=== PATIENT | female | born 1985 | race Caucasian/White ===

== ENCOUNTER 2016-09-13 05:21 | Inpatient (IN) | payer BC ==
[~2016-09-13] VITALS: Ht 157.5 cm; Wt 77.3 kg
[2016-09-13 05:45] VITALS: BP 117/82
--- NOTE | 2016-09-13 05:45 | NUR ---
REC'D PT VIA STRETCHER FROM ER PER ER STAFF. PT TRANSFERS SELF TO BED. PT CURRENTLY DENIES PAIN AT PRESENT. PT HAS PIV TO LEFT AC AREA W/NS INFUSING AT SLOW RATE VIA GRAVITY. NS D/C'D. PITOCIN 20UNITS/NS INITIATED AT 125ML/HR VIA PUMP. BREATHSOUNDS CL/=, BOWEL SOUNDS PRESENT X 4. FUNDUS FIRM,U/1, MIDLINE. SCANT LOCHIA NOTED. NO BLOOD CLOTS EXPRESSED W/MASSAGE. NO APPARENT LACERATION NOTED. PEDAL PULSES PRESENT BILATERALLY. NO EDEMA NOTED. PT'S MOTHER DELIVERED AT PT'S HOME. PT'S MOTHER DENIES ANY DIFFICULTY WITH DELIVERY. SHE STATES "BY THE TIME I LAYED HER BACK, THE HEAD WAS AND THE BODY FOLLOWED EASILY." PLACENTA WAS DELIVERED PER ER MD PRIOR TO PT ARRIVING TO L&D. APPROX DELIVERY TIME OF INFANT REPORTED WAS 0450. PLACENTA DELIVERY TIME WAS 0524. PT REPORTS SHE IS A G3 NOW P3. PT REPORTS 2 PRIOR PREGNANCIES WERE W/OUT COMPLICATIONS AND WERE BOTH VAGINAL DELIVERIES AT TERM GESTATION. PT REPORTS SHE WAS UNAWARE THAT SHE WAS EVEN , ALTHOUGH PT'S MOTHER REPORTS TO Anuj BOATENG RN THAT SHE (PT'S MOTHER) SUSPECTED THAT THE PT WAS PREGNATN AND EVEN CONFRONTED THE PATIENT SUCH.
[2016-09-13 06:03] VITALS: BP 108/67; Ht 157.5 cm; Wt 77.3 kg
[2016-09-13 07:45] VITALS: BP 121/74
--- NOTE | 2016-09-13 07:45 | NUR ---
Upon entering room pt is awake and tilted to her right side. IV to her left AC infusing per orders via pump. fundus firm at 1/u, per pt she has not been up to bathroom since arrival to hospital. VS as charted on graph. Explained to her need to get up to void now and every couple of hours. Although she is hesitant at first she is able to amb without assistance and voids 400ml. Cailin care per herself with warm wet wash cloths. Gown, cailin pad and panties are provided to her. No clots noted with void and she denies pain or burning, state she does feel less cramping now, but rates pain at 6/10. Pain medication and options gone over and she request "just motrin" at this time.
--- NOTE | 2016-09-13 08:00 | NUR ---
IV saline locked at this time, lab notified for blood draw.
--- NOTE | 2016-09-13 08:07 | NUR ---
Kelly Guillen 09/13/16 LE@ 7:55 S: Patient states she is sore, still in shock over delivery at home. O: Patient lying in bed, light dim. Congratulated on delivery, your story is pretty amazing. Baby is beautiful, she just had her bath and is under the warmer, Itzel the nursery nurse, wanted me to let you know that status of baby and she will visit with you shortly. Feeding , would you like help with ? States she breastfed her other 2 children and plans on new baby. When infant is available to come into the room for feeding, please let us know how we can help with . does take time and patience. Allowing the infant to latch for every feeding will help with establishing her milk supply. It is possible she may or may not feel some discomfort at first but it shouldn't hurt, isn't associated with pain. That usually means infant latch can be changed and that's an easy fix. Asked if any questions or concerns at this time, patient declined. Will follow up. A: Patient appears tired, in shock from delivery. P: Promote exclusively during hospital visit. Abdulaziz Valadez, CLC
--- NOTE | 2016-09-13 08:13 | NUR ---
Motrin 600mg given per pt request for cramping. See emar. She is sitting up eating breakfast, no other needs at this time.
[2016-09-13 09:29] LABS: BASOPHILS 0 % (0.0-2.0); EOSINOPHILS 0.1 % (0-7); HEMATOCRIT 33.3 % (36.0-48.0); HEMOGLOBIN 10.8 g/dL (12-16); IMMATURE GRANULOCYTES 0.3 % (0-5); MCHC 32.4 g/dL (31.0-37.0); MCV 89.5 fL (80.0-100.0); MEAN PLATELET VOLUME 10.7 fL (7.4-10.4); MONOCYTES 4.8 % (2-11); NEUTROPHILS 87.8 % (40-80); PLATELET COUNT 202 10x3/uL (130-400); RBC 3.72 10x6/uL (4.00-5.40); RDW 13.3 % (11.5-14.5); WBC 11.9 10x3/uL (4.8-10.8)
[2016-09-13 09:37] LABS: UDS - AMPHET NEGATIVE QUAL (NEGATIVE); UDS - BARB NEGATIVE QUAL (NEGATIVE); UDS - BENZO NEGATIVE QUAL (NEGATIVE); UDS - COCAINE NEGATIVE QUAL (NEGATIVE); UDS - METH NEGATIVE QUAL (NEGATIVE); UDS - OPIATE POSITIVE QUAL (NEGATIVE); UDS - PCP NEGATIVE QUAL (NEGATIVE); UDS - THC NEGATIVE QUAL (NEGATIVE)
--- NOTE | 2016-09-13 10:22 | NUR ---
Pt sitting up in bed talking on the phone, family/friends at bedside holding . Denies pain or discomfort at this time. Shower supplies placed in bathroom per pt request. Side rails up x 2 with calllight in reach.
--- NOTE | 2016-09-13 12:02 | NUR ---
Pt denies needs at this time, rates pain at 2/10. Family at bedside, in crib at bedside.
[2016-09-13 13:00] VITALS: BP 112/60
--- NOTE | 2016-09-13 14:25 | NUR ---
Called to room, pt asking to take a shower now. Family in room so infant left in crib at bedside. Prior to shower she complains of tenderness at IV site, IV removed with cath intact. Bed linens changed while pt is in the shower. Denies any dizziness or nausea while in the shower, family remains in room and states understanding to call for nurse if needed.
--- NOTE | 2016-09-13 15:00 | NUR ---
Case management request to visit with patient. She is out of shower and is agreeable to visit. Rates her pain after shower at 4/10 but denies need for pain medication at this time. Will call if she needs anything for pain.
--- NOTE | 2016-09-13 15:02 | NUR ---
ORDER TO MEET WITH PATIENT NO CARE. MOM DID NOT KNOW SHE WAS . 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 SPOKE WITH LEON SUAZO. SHE STATES THAT SHE TRULY DID NOT KNOW SHE WAS . SHE STATES THAT SHE DID NOT GET A LARGE ABDOMEN AND THAT SHE HAS PERIODS EACH MONTH. 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 SHE STATES THAT SHE LIVES WITH HER OTHER CHILDREN BUT WILL NOW BE STAYING WITH HER MOTHER, TIEN GONZALEZ [phone]. SHE HAS TWO OTHER CHILDREN, GIRL AGE 8, MASTER, AND BOY JULIA AGE 4. MASTER GOES TO SCHOOL AT [employer] AND JULIA GOES TO [employer]. SHE PLANS TO BREAST FEED EXCLUSIVELY. SHE STATES SHE HAS A CARSEAT AND CRIB. SHE STATES HER FAMILY HAS GOTTEN TOGETHER AND ARE PROVIDING ALL SHE NEEDS FOR THIS BABY. LEON STATES SHE HAS A CAR AND DRIVES AND WILL BE ABLE TO GET TO FOLLOW UP APPOINTMENTS FOR SHE AND BABY. SHE WILL BE LIVING AT [address] [place] [address] WITH HER MOTHER. LEON'S PHONE NUMBER IS [phone]. LEON DENIES ANY DISCHARGE NEEDS AT THIS TIME.
--- NOTE | 2016-09-13 17:30 | NUR ---
Visiting with friends with in room. denies any needs at this time. Rates pain at 2-3/10 but denies need for any medication. Side rails up x 2 with phone and call light in reach.
--- NOTE | 2016-09-13 18:48 | NUR ---
report given to 7p-7a.
[2016-09-13 19:04] VITALS: BP 114/72
--- NOTE | 2016-09-13 19:04 | NUR ---
RCVD PT FROM AM SHIFT. PT SITTING UP IN BED WITH UP IN ARMS CHEERFUL AND BONDING WITH INFANT. PT RATES PAIN CURRENTLY A 3/10 IN ABD AND DESCRIBES THIS CRAMPING. BREATH SOUNDS CLEAR =X2. BOWEL SOUNDS ACTIVE X4. PPP. S1, S2. FUNDUS FIRM, ML, U/1. PT REPORTS PASSING GAS AND VOIDING RECENTLY. PT VOICED NEED TO AMB MORE. ENCOURAGED PT TO AMB AROUND ROOM AND AROUND UNIT. PT VERBALIZED UNDERSTANDING. XOCHITL RAMIREZ SCANT ON PERIPADS. PT REPORTS SHOWERING EARLIER TODAY AND STATES "I FEEL A LOT BETTER AFTER THAT." PT REQUESTS MOTRIN. MOTRIN 600 MG X1 TAB GIVEN @ 191 AFTER ASSESSMENT. PT DENIES FURTHER NEEDS. WILL CONTINUE TO MONITOR. BED LOW, WHEELS LOCKED, CL IN REACH, SIDE RAILS UP X2.
--- NOTE | 2016-09-13 19:57 | NUR ---
PAIN REASSESSMENT COMPLETE. FAMILY IN ROOM VISITING. PT SITTING UP IN BED WITH INFANT UP IN ARMS. PT RATES PAIN 1/10 CURRENTLY AND DENIES NEEDS AT THIS TIME.
--- NOTE | 2016-09-13 20:40 | NUR ---
ROUNDS MADE. PT SITTING UP IN BED, UP IN ARMS. VISITOR IN ROOM SITTING ON BED WITH PT. PT RATES PAIN 1/10 CURRENTLY AND DENIES FURTHER NEEDS. WILL COTINUE TO MONITOR.
--- NOTE | 2016-09-13 21:50 | NUR ---
ROUNDS MADE. PT NOTED TO BE SLEEPING IN BED, SNORING LOUDLY, WITH ON CHEST. INFANT PLACED IN OPEN CRIB PER THIS RN AND SWADDLED. SAFETY PROTOCOLS DISCUSSED WITH PATIENT ON PLACING INFANT IN CRIB AND NOT SLEEPING IN BED WITH . ALSO DISCUSSED SENDING TO NBN IF NO ADULTS ARE AWAKE IN THE ROOM. PT VERBALIZED UNDERSTANDING. PT DENIES PAIN OR NEEDS AT THIS TIME. WILL CONTINUE TO MONITOR.
--- NOTE | 2016-09-13 22:57 | NUR ---
ROUNDS MADE. PT RESTING, EYES CLOSED, RESP EVEN & UNLABORED. SLEEPING IN OPEN CRIB AT BEDSIDE. NBN INFORMED OF INFANT AND MOTHER SLEEPING AND PER NBN "BABY CAN STAY IN ROOM BECAUSE IT'S ABOUT TIME FOR HER TO FEED ANYWAY." PT LEFT UNDISTURBED AT THIS TIME. WILL CONTINUE TO MONITOR.
--- NOTE | 2016-09-14 00:41 | NUR ---
ROUNDS MADE. PT LYING ON LT SIDE INFANT AT THIS TIME. PT REQUESTS & RECEIVES MOTRIN 600MG X1 TAB FOR ABD PAIN 4/10 DESCRIBED CRAMPING. ICE WATER ALSO PROVIDED PER REQUEST. PT DENIES FURTHER NEEDS AT THIS TIME. WILL CONTINUE POC.
--- NOTE | 2016-09-14 01:23 | NUR ---
PT LYING ON LT SIDE INFANT AT THIS TIME. PT RATES PAIN 1/10 CURRENTLY AND TOLERABLE. PT DENIES FURTHER NEEDS AT THIS TIME. WILL CONTINUE TO MONITOR.
--- NOTE | 2016-09-14 02:05 | NUR ---
INFANT TRANSPORTED TO ROOM PER KAREN RN. PER Irma SWAIN RN, PT AAOX4 AND NURSING INFANT AT THIS TIME. WILL CONTINUE POC.
--- NOTE | 2016-09-14 03:41 | NUR ---
ROUNDS MADE. PT SITTING UP IN BED WITH INFANT UP IN ARMS. PT DENIES PAIN OR NEEDS AT THIS TIME. WILL CONTINUE TO MONITOR.
--- NOTE | 2016-09-14 05:30 | NUR ---
ROUNDS MADE. PT LYING AWAKE IN BED W/INFANT UP IN ARMS. PAIN AND NEEDS ASSESSED. PT DENIES NEEDS. RATES ABD CRAMPING 09/28. FRESH ICE WATER SERVED IN [facility].
[2016-09-14 06:53] LABS: BASOPHILS 0.1 % (0.0-2.0); EOSINOPHILS 2.4 % (0-7); HEMATOCRIT 31.8 % (36.0-48.0); HEMOGLOBIN 10.3 g/dL (12-16); IMMATURE GRANULOCYTES 0.3 % (0-5); LYMPHOCYTES 17.7 % (15-50); MCH 29.3 pg (26.0-34.0); MCHC 32.4 g/dL (31.0-37.0); MCV 90.3 fL (80.0-100.0); MEAN PLATELET VOLUME 10.6 fL (7.4-10.4); MONOCYTES 10.2 % (2-11); NEUTROPHILS 69.3 % (40-80); PLATELET COUNT 172 10x3/uL (130-400); RBC 3.52 10x6/uL (4.00-5.40); RDW 13.7 % (11.5-14.5)
[2016-09-14 06:55] LABS: WBC 8.9 10x3/uL (4.8-10.8)
--- NOTE | 2016-09-14 07:20 | NUR ---
RINGS CALL LIGHT- REQUESTING IBUPROFEN FOR CRAMPING.
[2016-09-14 07:27] LABS: RAPID PLASMA REAGIN Non Reactive (Non Reactive)
[2016-09-14 07:28] VITALS: BP 104/63
--- NOTE | 2016-09-14 07:32 | NUR ---
ASSESSMENT BEING DONE. VERBAL RESPONSES APPRO TO QUESTIONS.PT SITTING UP IN BED HOLDING . REG BREAKFAST SERVED. RATES CRAMPING A 3 ON SCALE OF 0-10. FUNDUS UU/FIRM, SCANT LOCHIA ON PADS.
--- NOTE | 2016-09-14 09:08 | NUR ---
Kelly Guillen 09/14/16 LE@ 8:05 S: Kelly states is going great, she nursed her two children. O: Patient sitting up bed infant. nursing on right breast, mouth is round, sucking in a rocking motion; mouth 140 degrees infant has a great latch. Provided and explained handouts on waking a sleeping baby, skin to skin, positions for , hand expression, starting a feeding, and engorgement. takes time and patience. Explain supply and demand, what baby takes out, her body will make more. Encouraged to latch baby for every feeding. Made patient a [facility] appointment, provided date and time. Asked if any questions or concerns, patient declined, will follow up. A: Patient appears confident with , loving talking with baby. P: Continue support exclusively during hospital visit. Abdulaziz Valadez, CLC
[2016-09-14 14:23] LABS: RUBELLA IGG <0.90 index (Immune >0.99)
--- NOTE | 2016-09-14 14:24 | NUR ---
Moved pt to . Pt ambulated without difficulty with me and in open crib to room 1215. Family in room as well. All belongings carried by family. Oriented to room. Call light in reach, bed low position and locked, side rails up x 2. Pt denies needs at this time.
--- NOTE | 2016-09-14 15:00 | NUR ---
PT RESTING IN BED WATCHING TV AND SMILING. NO VISITORS IN ROOM. PT DENIES NEEDS AT THIS TIME.
--- NOTE | 2016-09-14 16:26 | NUR ---
PATIENT RESTING QUIETLY IN BED HOLDING INFANT. NO SIGNS OF DISTRESS NOTED.
--- NOTE | 2016-09-14 18:09 | NUR ---
SITTING IN BED HOLDING INFANT. SMILING AND TALKING TO HER. ADMINISTERED PAIN MEDICINE REQUESTED AND ORDERED. WILL REASSESS
[2016-09-14 19:45] VITALS: BP 112/60
--- NOTE | 2016-09-14 19:45 | NUR ---
PT RECEIVED LYING IN BED WITH IN ARMS LOOKING LOVINGLY AT . AWAKE AND ALERT. VSS. S/L NOTED TO LEFT A/C. DRESSING CDI. HEART RRR. LUNG SOUNDS CLEAR BILATERALLY. BOWEL SOUNDS ACTIVE X4 QUADRENTS. ABDOMEN SOFT. FFM. PT STATES LOCHIA HAS BEEN LIGHT. SCANT LOCHIA NOTED TO ROSELYN PAD. PT REMOVED SCDS FROM BLE TO USE RESTROOM. DENIES BURNING WHEN USING THE RESTROOM. PT RATES PAIN 0/10. DENIES NEEDS AT THIS TIME. BED LOW. PHONE AND CALL LIGHT IN REACH. SRX2.
--- NOTE | 2016-09-14 20:55 | NUR ---
PT SITTING UP IN BED WITH ON CHEST. REQUESTS SODA AT THIS TIME. DENIES OTHER NEEDS. BED LOW. PHONE AND CALL LIGHT IN REACH. SRX2.
--- NOTE | 2016-09-14 21:24 | NUR ---
PT LYING IN BED WITH ON CHEST WATCHING TV. DENIES NEEDS AT THIS TIME. BED LOW. PHONE AND CALL LIGHT IN REACH. SRX2.
--- NOTE | 2016-09-14 22:31 | NUR ---
PT SITTING UP IN BED WITH ON CHEST. DENIES NEEDS AT THIS TIME. BED LOW. PHONE AND CALL LIGHT IN REACH. SRX2.
[2016-09-15 00:10] VITALS: BP 109/70
--- NOTE | 2016-09-15 00:10 | NUR ---
PT SITTING UP IN BED AT THIS TIME. VSS. PT DENIES NEEDS AT THIS TIME. BED LOW. PHONE AND CALL LIGHT IN REACH. SRX2.
--- NOTE | 2016-09-15 02:10 | NUR ---
PT RESTING QUIETLY AT THIS TIME WITH EYES CLOSED. RESPIRATIONS EVEN, NON-LABORED. NO ACUTE DISTRESS NOTED AT THIS TIME. BED LOW. PHONE AND CALL LIGHT IN REACH. SRX2.
[2016-09-15 04:15] VITALS: BP 100/57
--- NOTE | 2016-09-15 04:15 | NUR ---
PT RESTING QUIETLY AT THIS TIME WITH INFANT ON CHEST. VSS. PT DENIES NEEDS AT THIS TIME. BED LOW. PHONE AND CALL LIGHT IN REACH. SRX2.
--- NOTE | 2016-09-15 06:04 | NUR ---
PT RESTING QUIETLY AT THIS TIME. DENIES NEEDS. BED LOW. PHONE AND CALL LIGHT IN REACH. SRX2.
--- NOTE | 2016-09-15 07:15 | NUR ---
PT AWAKE, ALERT, ORIENTED, RESTING IN BED HOLDING . FUNDUS U/1, FIRM. REPORTS NO HEAVY BLEEDING. VSS. NO NEEDS. ANTICIPATES D/C TODAY.
--- NOTE | 2016-09-15 07:15 | NUR ---
PT AWAKE, ALERT, ORIENTED, SITTING UP IN BED COLORING. VSS. LOW TRANSVERSE ABD INC C/D/I WITH MILAGROS, COVERED WITH ROSELYN PAD FOR COMFORT. ABD SOFT. PT STATES HAS PASSED SOME GAS. SCANT VAG BLEEDING. LARGE GLASS ICE WATER PROVIDED. ANTICIPATES D/C TODAY.
[2016-09-15 07:20] VITALS: BP 109/66
[2016-09-15 07:52] VITALS: BP 109/66
--- NOTE | 2016-09-15 08:14 | NUR ---
DISCUSSED MMR AND TDAP AND FLU WITH PT. SHE STATES SHE HAD TDAP WITH LAST DELIVERY. DECLINED MMR AND FLU SHOT. PT STATES " I HAVE ALREADY HAD THE FLU."
--- NOTE | 2016-09-15 08:35 | NUR ---
SITTING UP IN CHAIR AT BEDSIDE. NO NEEDS.
--- NOTE | 2016-09-15 09:18 | NUR ---
DRESSED, UP AND AB0UT IN ROOM. HOLDING LOVINGLY.
--- NOTE | 2016-09-15 09:59 | NUR ---
RESTING IN BED ON LEFT SIDE.
[2016-09-15] MEDS ORDERED: HYDROCODON-ACE1 EAC7 PO (10:56)
[2016-09-15] MEDS ORDERED: IBUPROFEN600 MG PO (10:56)
--- NOTE | 2016-09-15 11:30 | NUR ---
DR. HILARIO VS. D/C ORDERS REC'D.
--- NOTE | 2016-09-15 12:43 | NUR ---
REG DIET PROVIDED AND TOLERATED.
--- NOTE | 2016-09-15 13:07 | NUR ---
SITTING UP IN CHAIR AT BEDSIDE. NO NEEDS.
--- NOTE | 2016-09-15 13:46 | NUR ---
D/C INSTRUCTIONS EXPLAINED TO PT. VOICED UNDERSTANDING. COPIES OF ALL GIVEN, WELL WRITTEN RX'S FOR NORCO 5 AND MOTRIN [address] HILARIO. AWAITING 'S D/C.
--- NOTE | 2016-09-15 14:16 | NUR ---
D/C'D HOME WITH , VIA WC TO PRIVATE CAR.
[2016-09-16 18:06] LABS: UDSC - AMPHET Negative ng/mL (Cutoff=1000); UDSC - BARB Negative ng/mL (Cutoff=300); UDSC - BENZO Negative ng/mL (Cutoff=300); UDSC - COC Negative ng/mL (Cutoff=300); UDSC - METH Negative ng/mL (Cutoff=300); UDSC - OPIATES Positive (Cutoff=300); UDSC - PCP Negative ng/mL (Cutoff=25); UDSC - PROPOXY Negative ng/mL (Cutoff=300); UDSC - THC Negative ng/mL (Cutoff=50)
== END 2016-09-15 14:17 | disposition home or self-care (01) | DRG 775 ==
LOC: D.ER 05:21 → D.LD 05:53 → D.WS 09-14 14:24
PROVIDERS: ADMIT Obstetrics & Gynecology
DX: O62.3 Precipitate labor (principal); Z37.0 Single live birth; O09.30 Supervision of pregnancy with insufficient antenatal care, unspecified trimester